=== PATIENT | male | born 1965 | race Two or more races ===

== ENCOUNTER 2018-06-16 06:35 | Day surgery (SDC) | payer OTHER ==
[~2018-06-16] VITALS: Ht 172.7 cm; Wt 94.8 kg
--- NOTE | ~2018-06-16 | OR ---
[facility] [address], [place] [address] Draft DATE OF OPERATION: 06/16/2018 SURGEON: Claribel Bass MD PREOPERATIVE DIAGNOSES: 1. Epigastric symptoms. 2. Episodic dysphagia. POSTOPERATIVE DIAGNOSES: 1. Normal-appearing distal esophagus, mild corrugated changes in mid esophagus. 2. Diffuse gastritis without ulceration. 3. Retention of gastric food. 4. CLOtest positive (Helicobacter pylori). PROCEDURE: Esophagogastroduodenoscopy with biopsy. ANESTHESIA: Intravenous sedation, fentanyl 100 mcg and versed 3 mg. 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 He was noted by his dentist, Dr. Lisa Saenz, to have acid erosion of the enamel on his teeth. Upper endoscopy is recommended by Dr. Ash. The risks of bleeding, infection, perforation, and so forth were reviewed with him regarding upper endoscopy. He understands and wished to proceed. FINDINGS: He had no evidence of distal esophagitis, stricture, or Hernandez epithelium. In the mid esophagus, there was mild change of inflammation, possibly some corrugation, but not definitely eosinophilic esophagitis. The stomach was notable for some retained semi-solid food. No sign of pyloric outlet obstruction or ulceration, but diffuse gastritis. The duodenum was normal. CLOtest was positive 15 minutes post procedure. DESCRIPTION OF PROCEDURE: The patient was brought to the endoscopy suite and given topical Hurricaine hypopharyngeal anesthesia. He had diffuse and extensive coughing following this. Once this settled down, he was placed in lateral decubitus position and given intravenous sedation to the point of slurred speech and nystagmus. A bite block was placed. Full PATIENT NAME: DE LOPES OPERATIVE REPORT DATE OF : 69 REPORT #: [id number] PHYSICIAN: CLARIBEL BASS MD PCP: RICHARD ASH MD REPORT IS CONFIDENTIAL AND NOT TO BE RELEASED WITHOUT AUTHORIZATION [facility] [address], [place] [address] Draft cardiopulmonary monitoring was maintained. An Olympus video upper endoscope was passed into hypopharynx. The vocal cords appeared normal. The scope was advanced to the esophagus without problem. Throughout its length, it appeared normal. In particular, the distal esophagus was completely normal. The scope was passed to the stomach where immediately noted was some retained semi-solid food. It was not copious in amount. This scope was manipulated around this to the antrum where the pylorus was identified and the scope passed through it into the duodenum. The duodenum showed no specific abnormality. Biopsies were obtained nevertheless. The scope was withdrawn to the antrum where diffuse gastritis was confirmed. Irrigation was undertaken as needed. Biopsies were taken of the proximal stomach and subsequently the antrum. CLOtest biopsies were taken as well. Retroflexed view showed the flap valve to be reasonably good. The scope was withdrawn to the distal esophagus, which affirmed completely normal mucosa. This was biopsied. The scope was withdrawn to the mid esophagus where there was a slight felinization noted, but probably not pathologic and probably not eosinophilic esophagitis related. However, given his dysphagia, biopsies were obtained. The scope was further withdrawn and there were no other findings of concern. The patient was taken to recovery room in good condition. CONCLUDING DIAGNOSES: He has diffuse gastritis related to Helicobacter pylori. He has some retained food, which may be a secondary effect of his gastritis and dysmotility. He shows no evidence of esophagitis or stricture. The mid esophagus was biopsied in addition to assess for possible eosinophilic esophagitis, however. PLAN: We will treat for H pylori as well as PPI medication on a daily basis. He will return to see us in 4 to 6 weeks. Future testing for H pylori might include a urea breath test. Consideration will be made for a solid food emptying study depending on his clinical response to therapy. MD AYAZ Ramírez/VALERIEL /[id number] PATIENT NAME: DE LOPES OPERATIVE REPORT DATE OF : 69 REPORT #: [id number] PHYSICIAN: CLARIBEL BASS MD PCP: RICHARD ASH MD REPORT IS CONFIDENTIAL AND NOT TO BE RELEASED WITHOUT AUTHORIZATION [facility] [address], [place] [address] Draft cc: Richard Ash MD Copies: RICHARD ASH MD ~ PATIENT NAME: HEIKERUBENDE OPERATIVE REPORT DATE OF : 69 REPORT #: [id number] PHYSICIAN: CLARIBEL BASS MD PCP: RICHARD ASH MD REPORT IS CONFIDENTIAL AND NOT TO BE RELEASED WITHOUT AUTHORIZATION
[~2018-06-16 06:35] MED LIST: BACLOFEN20 MG PO; BALMEX100 GM TOP; BISOPROLOL-HCT1 EACH PO; CITALOPRAM HBR20 MG PO; CITRUCEL POWDE454 GM PO; DILAUDID4 MG PO; LIPITOR40 MG PO; LISINOPRIL10 MG PO; LOSARTAN POTASS50 MG PO; MOTRIN IB200 MG PO; NITROSTAT0.4 MG SL; NORCO 5-325 TA1 EACH PO
[2018-06-16] MEDS ORDERED: GLUCOPHAGE500 MG PO (07:00)
--- NOTE | 2018-06-16 08:02 | NUR ---
06/16/18 0801 Angi Lopez 0756 PT DROWSY BUT AROUSABLE REPORTS PAIN /10 TO THROAT.
== END 2018-06-16 09:16 | disposition home or self-care (01) ==
LOC: OPS 06:35 → DS 06:35 → OPS 06:45 → DS 06:45 → OPS 09:16
PROVIDERS: Surgery
PROC: 0DB78ZX Excision of Stomach, Pylorus, Via Natural or Artificial Opening Endoscopic, Diagnostic (ICD-10-PCS; 2018-06-16)
PROC: 0DB68ZX Excision of Stomach, Via Natural or Artificial Opening Endoscopic, Diagnostic (ICD-10-PCS; 2018-06-16)
PROC: 0DB28ZX Excision of Middle Esophagus, Via Natural or Artificial Opening Endoscopic, Diagnostic (ICD-10-PCS; 2018-06-16)
PROC: 0DB38ZX Excision of Lower Esophagus, Via Natural or Artificial Opening Endoscopic, Diagnostic (ICD-10-PCS; 2018-06-16)
PROC: 0DB98ZX Excision of Duodenum, Via Natural or Artificial Opening Endoscopic, Diagnostic (ICD-10-PCS; principal; 2018-06-16 06:45)
DX: K29.30 Chronic superficial gastritis without bleeding (principal); B96.81 Helicobacter pylori [H. pylori] as the cause of diseases classified elsewhere; K20.9 Esophagitis, unspecified; I10 Essential (primary) hypertension; K21.9 Gastro-esophageal reflux disease without esophagitis; Z79.899 Other long term (current) drug therapy; Z79.84 Long term (current) use of oral hypoglycemic drugs
CPT/HCPCS: 99153; G0500; J2250; J3010; J7120

== ENCOUNTER 2019-12-28 09:05 | Day surgery (SDC) | payer OTHER ==
[~2019-12-28] VITALS: Ht 172.7 cm; Wt 95.2 kg
[~2019-12-28 09:05] MED LIST changes: +GLUCOPHAGE500 MG PO
--- NOTE | 2019-12-28 11:19 | NUR ---
PT ALERT, ORIENTED AND BUSY WITH PAPERWORK. GAVE ENOURAGEMENT, PT REQUESTED PRAYER. WILL FOLLOW NEEDED
[2019-12-28] MEDS ORDERED: DICLOFENAC SODI75 MG PO (11:28)
[2019-12-28] MEDS ORDERED: HYDROCODON-ACE1 EA10 PO (11:28)
--- NOTE | 2019-12-28 11:34 | NUR ---
12/28/19 1134 Zafar Sifuentes 1128) ARRIVES TO PACU VERY SLEEPY, BUT HOLDING HIS OWN AIRWAY. SNORING LOUDLY
--- NOTE | 2019-12-28 12:32 | NUR ---
PATIENT BACK IN DAY SURGERY ROOM FROM PACU. C/O PAIN 08/21. DECLINES PAIN MEDICATION AT THIS TIME. CMS TO RIGHT TOES WNL. RIGHT KNEE DRESSING CDI. ICE PACK TO RIGHT KNEE. IV SITE WNL. VS CHECKED. SCDs ON. WATER PLACED AT BEDSIDE. CALL LIGHT WITHIN REACH.
--- NOTE | 2019-12-28 13:15 | NUR ---
PATIENT ASSISTS OOB AND TO BATHROOM. GAIT STEADY. VOID WITHOUT DIFICULTY. GAIT STEADY BACK TO ROOM. SOUP ORDER FOR LUNCH. TOLERATING WATER. DECLINES PAIN MEDICATION. SITTING ON SIDE OF BED. VS CHECKED. CALL LIGHT WITHIN REACH.
--- NOTE | 2019-12-28 15:23 | NUR ---
1405: PATIENT TOLERATED SOUP. STATES READY TO GO HOME. PATIENT GETTING DRESSED. 1430: DISCHARGE INSTRUCTIONS GIVEN TO PATIENT. IV DC'D WNL. TIP INTACT. DRESSING APPLIED. PATIENT DISCHARGED TO HOME VIA WHEELCHAIR WITH FRIEND.
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
== END 2019-12-28 14:30 | disposition home or self-care (01) ==
LOC: DS 09:05
PROVIDERS: ATTEND Specialist
PROC: 0SBC4ZZ Excision of Right Knee Joint, Percutaneous Endoscopic Approach (ICD-10-PCS; principal; 2019-12-28 11:00)
DX: S83.241A Other tear of medial meniscus, current injury, right knee, initial encounter (principal); M65.861 Other synovitis and tenosynovitis, right lower leg; E11.9 Type 2 diabetes mellitus without complications; E78.00 Pure hypercholesterolemia, unspecified; Z79.899 Other long term (current) drug therapy; Z79.84 Long term (current) use of oral hypoglycemic drugs; X58.XXXA Exposure to other specified factors, initial encounter
CPT/HCPCS: 01402; J0690; J1100; J1885; J2001; J2405; J2704; J3010; J7121